=== PATIENT | male | born 1980 | race Caucasian/White ===

== ENCOUNTER 2020-03-23 12:18 | Emergency (ER) | payer OTHER, SELFPAY ==
--- NOTE | ~2020-03-23 | XR_ITS ---
EXAMINATION: XR chest 1V portable INDICATION: Shortness of breath, COVID 19 positive TECHNIQUE: Portable AP chest at 1312 hours COMPARISON: 10/08/2015 FINDINGS: There are patchy airspace opacities of the right lung base. No pleural effusion or pneumoth orax is identified. The cardiomediastinal silhouette is normal. IMPRESSION: 1. Patchy airspace opacities of the right lung base, likely pneumonia. Reviewed, dictated and finalized at location A.
[2020-03-23 12:32] VITALS: BP 122/79; PULSE 79; RESP 18; TEMP 36.6; O2SAT 99
--- NOTE | 2020-03-23 12:35 | ECG_ITS ---
Measurements Intervals [place] Rate: 76 P: 32 SC: 162 QRS: 59 QRSD: 85 T: 30 QT: 366 QTc: 412 Interpretive Statements SINUS RHYTHM POSSIBLE LEFT ATRIAL ENLARGEMENT DELAYED PRECORDIAL R/S TRANSITION BORDERLINE ECG Electronically Signed On 03-23-2020 12:55:01 CDT by John Woods D.O.
--- NOTE | 2020-03-23 12:43 | ED.SOB ---
HPI - SOB/Dyspnea General Chief Complaint: Shortness of Breath/Dyspnea Stated Complaint: chest pressure/positive covid Time Seen by Provider: 03/23/20 12:42 History of Present Illness HPI Narrative: He recently tested positive for COVID-19. Initial symptoms were loss of taste and smell. This started 9 days ago. He has been doing well until this morning when he suddenly developed shortness of breath and mild chest pressure. He used an old albuterol inhaler which helped. This has mostly resolved. Related Data Home Medications Medication Instructions Recorded Confirmed atorvastatin 10 mg tablet 10 mg PO DAILY 08/24/19 08/24/19 podofilox 0.5 % topical solution 1 applic TOPICAL BID 08/24/19 08/24/19 Allergies Allergy/AdvReac Type Severity Reaction Status Date / Time No Known Allergies Allergy Verified 08/24/19 15:22 Review of Systems Review of Systems: All systems reviewed & are unremarkable except as noted in HPI and below Constitutional: Constitutional: Denies chills, Denies fever(s) and Denies weakness ENT: Denies sore throat Cardiovascular: Cardiovascular: Reports chest pain Respiratory: Respiratory: Reports cough, Reports dyspnea and Denies wheezing Gastrointestinal: Gastrointestinal: Denies nausea and Denies vomiting Musculoskeletal: Musculoskeletal: Denies back pain Neurologic: Denies dizziness and Denies weakness Psychiatric: Psychiatric: Reports anxiety PMFSH Past Medical History Medical History Dyslipidemia Elbow fracture Forearm fracture Fracture of triquetrum 01/2004 History of genital warts 06/08/2018 Family History Family History Other Diabetes mellitus Family history of coronary artery disease Hypertension Social History Social History Smoking status: Never smoker Second hand tobacco smoke exposure: No Alcohol intake: current Gender identity (if verbalized by the patient): Male Exam Const: General: healthy appearing, no acute distress and alert Orientation/consciousness: patient oriented x3 HENMT: Head: normal to inspection Chest: Chest palpation & inspection: normal inspection of the chest and no tenderness Resp: Effort & Inspection: normal respiratory effort Auscultation: clear to auscultation bilaterally Cardio: Rate: regular rate Rhythm: regular rhythm GI: GI Palp: Yes Soft to palpation and No Tenderness to palpation present (GI) Skin: General skin exam: normal color Rashes: no rashes Neuro: General: patient oriented x3, moves all extremities and no focal motor deficits Speech: normal speech Extrem: General: normal to inspection and no edema Course Vital Signs Vital signs: Vital Signs Temperature 36.6 C 03/23/20 12:32 Pulse Rate 79 03/23/20 12:32 Respiratory Rate 18 03/23/20 12:32 Blood Pressure 122/79 03/23/20 12:32 Pulse Oximetry 99 03/23/20 12:32 Temperature 36.6 C 03/23/20 12:32 Pulse Rate 79 03/23/20 12:32 Respiratory Rate 18 03/23/20 12:32 Blood Pressure 122/79 03/23/20 12:32 Pulse Oximetry 99 03/23/20 12:32 MDM - SOB/Dyspnea MDM Narrative Medical decision making narrative: oxygen saturation 99-100%. Minimal infiltrate. Likely all from COVID. Will start azithromycin incase there is secondary bacterial infection. No indication for admission at this time. Medical Records Attestation: I reviewed the patient's medical records. Imaging Data Radiologist's impression: ITS Impressions Chest X-Ray 03/23/20 13:15 IMPRESSION: 1. Patchy airspace opacities of the right lung base, likely pneumonia. Discharge Plan Discharge Clinical Impression: Pneumonia due to 2019-nCoV Patient Disposition: Home, Self-Care Condition: Stable Instructions: Antibiotic Form, COVID-19 (Coronavirus Disease 2019) (ED)
== END 2020-03-23 13:44 | disposition home or self-care (01) ==
PROVIDERS: Emergency Provider Emergency Medicine; PCP Family Medicine
DX: U07.1 COVID-19 (principal); J12.89 Other viral pneumonia; E78.5 Hyperlipidemia, unspecified; R94.31 Abnormal electrocardiogram [ECG] [EKG]
CPT/HCPCS: 71045; 93005; 99283

== ENCOUNTER → 2020-11-14 15:59 | Outpatient (CLI) | payer OTHER, SELFPAY ==
--- NOTE | ~2020-11-14 | XR_ITS ---
XR sacroiliac joints min 3V DATE: 11/14/2020 17:49 INDICATION: Sacroiliac joint pain TECHNIQUE: Multiple views COMPARISON: None FINDINGS: Normal alignment at the sacroiliac joints. No fracture or dislocation, erosion or ankylosis . The pubic symphysis is intact. Hip joint spaces appear symmetric and relatively preserved. IMPRESSION: Negative Reviewed, dictated and finalized at Location A. Reviewed, dictated and finalized at location A. IMPRESSION: Negative
--- NOTE | ~2020-11-14 | MR_ITS ---
EXAMINATION: MR lumbar spine wo con EXAM DATE: 11/14/2020 17:46 INDICATION: Lumbar radiculopathy since 2014, progressing over last few years. Radiating down both leg s. TECHNIQUE: Multi-sequential, multiplanar MR images of the lumbar spine were obtained without contrast . Sagittal T1, T2, T2 fat saturation images. Axial T2 weighted images. Correlation is made to lumba r x-ray 02/05/2015. FINDINGS: There is a transitional L5 segment with rudimentary L5-S1 disc. There is mild to moderate d isc disease L4-5 and mild at L3-4. The conus medullaris terminates at the L1 level and has normal sig nal intensity and morphology. The vertebral bodies are aligned in the AP dimension. There are no jimena picious marrow signal abnormalities. Paraspinal soft tissue is unremarkable. Level by level evaluation: T12-L1: Disc does not extend beyond the endplate margin. Facet arthropathy: Mild. Neural foraminal stenosis: No stenosis. Central canal stenosis: No stenosis. L1-L2: Disc does not extend beyond the endplate margin. Facet arthropathy: Mild. Neural foraminal stenosis: No stenosis. Central canal stenosis: No stenosis. L2-L3: There is a minimal diffuse disc bulge. Facet arthropathy: Mild. Neural foraminal stenosis: No stenosis. Central canal stenosis: No stenosis. L3-L4: There is a mild diffuse disc bulge. Facet arthropathy: Mild. Neural foraminal stenosis: No stenosis. Central canal stenosis: No stenosis. L4-L5: There is a mild to moderate diffuse disc bulge asymmetric to the right Facet arthropathy: Mild. Neural foraminal stenosis: Mild to moderate right, mild left. Central canal stenosis: Mild. L5-S1: Rudimentary disc. Facet arthropathy: Partially fused. Neural foraminal stenosis: No stenosis. Central canal stenosis: No stenosis. IMPRESSION: 1. Transitional sacralized L5 segment. 2. Mild to moderate lower lumbar spondylosis. Reviewed, dictated and finalized at location A.
== END ==
PROVIDERS: Visit Provider Nurse Practitioner Family
DX: M54.16 Radiculopathy, lumbar region (principal); M53.3 Sacrococcygeal disorders, not elsewhere classified; Q76.49 Other congenital malformations of spine, not associated with scoliosis; M47.816 Spondylosis without myelopathy or radiculopathy, lumbar region
CPT/HCPCS: 72148; 72202

== ENCOUNTER 2023-11-27 08:42 | Outpatient (CLI) | payer BC, SELFPAY ==
[2023-11-27 13:56] LABS: Basophils Percent Auto 0.6 % (0.2-1.2); Eosinophils Absolute Auto 0.1 K/mm3 (0-0.3); Eosinophils Percent Auto 1.1 % (0-4.4); Hematocrit 44.9 % (42.0-52.0); Hemoglobin 14.5 g/dL (14.0-18.0); Immature Granulocyte Absolute 0.01 K/mm3 (0.00-0.031); Immature Granulocyte Percent A 0.2 % (0-0.5); Lymphocytes Absolute Auto 1.97 K/mm3 (0.9-3.2); Lymphocytes Percent Auto 42.6 % (18.3-44.2); Mean Corpuscular HGB Conc 32.3 g/dl (32-36); Mean Corpuscular Hemoglobin 29.4 pg (26-34); Mean Corpuscular Volume 90.9 fl (80-100); Mean Platelet Volume 9.3 fl (7.4-10.4); Monocytes Absolute Auto 0.4 K/mm3 (0.1-0.6); Monocytes Percent Auto 9.1 % (2.6-8.5); Neutrophils Absolute Auto 2.1 K/mm3 (1.3-6.7); Neutrophils Percent Auto 46.4 % (45.5-73.1); Platelet Count Result 319 k/mm3 (150-375); Red Blood Count 4.94 M/mm3 (4.6-6.20); White Blood Count 4.6 K/mm3 (4.5-10.0)
[2023-11-27 14:06] LABS: Alanine Aminotransferase 45 U/L (6-50); Albumin Level 4.8 g/dL (3.5-5.1); Alkaline Phosphatase 60 U/L (38-126); Anion Gap 7 mmol/L (4-12); Aspartate Amino Transferase 67 U/L (17-59); Bilirubin,Total 0.7 mg/dL (0.2-1.3); Blood Urea Nitrogen 19 mg/dL (9-20); Calcium 10.2 mg/dL (8.4-10.2); Carbon Dioxide 25 mmol/L (22-30); Chloride 107 mmol/L (98-107); Cholesterol 235 mg/dL (0-200); Estimated Glomerular Filt Rate > 60; Glucose 101 mg/dL (65-110); HDL Direct 43 mg/dL; Sodium 139 mmol/L (137-145); Triglycerides 154 mg/dL (<150)
[2023-11-27 14:18] LABS: LDL Cholesterol Direct 144 mg/dL
[2023-11-27 14:38] LABS: Prostate Specific Antigen 1.3 ng/mL (< OR = 4.0); Thyroid Stimulating Hormone 0.197 uIU/mL (0.465-4.680)
[2023-11-27 16:01] LABS: Hemoglobin A1C 5.2 % (<5.7)
== END 2023-11-27 08:43 | disposition home or self-care (01) ==
LOC: ANHGOSHLAB 08:43
PROVIDERS: PCP Family Medicine; Visit Provider Nurse Practitioner Family
DX: Z00.00 Encounter for general adult medical examination without abnormal findings (principal); B00.1 Herpesviral vesicular dermatitis; M67.40 Ganglion, unspecified site; R73.03 Prediabetes; Z12.5 Encounter for screening for malignant neoplasm of prostate; E55.9 Vitamin D deficiency, unspecified; E78.5 Hyperlipidemia, unspecified; Z13.29 Encounter for screening for other suspected endocrine disorder
CPT/HCPCS: 36415; 80053; 80061; 82306; 83036; 84153; 84443; 85025; G0103

== ENCOUNTER 2023-12-10 07:23 | Outpatient (CLI) | payer BC, SELFPAY ==
--- NOTE | ~2023-12-10 | MR_ITS ---
MRI of the lumbar spine Clinical History: Back pain Technique: Axial T2-weighted images, and sagittal T1-weighted, T2-weighted, and T2 fat-sat images wer e acquired. COMPARISON: 11/14/2020 Findings: There is no acute fracture or subluxation of the lumbar spine. Osseous alignment is unchang ed from prior exam. No suspicious bone marrow signal abnormality seen. There are mild reactive marrow signal changes about the L4-L5 disc space due to underlying degenerative disc disease. At L1-L2, there is no disc bulge or herniation. There is moderate facet arthropathy. No central canal stenosis or neural foraminal narrowing. At L2-L3, there is no disc bulge or herniation. There is moderate facet arthropathy. No central canal stenosis or neural foraminal narrowing. L3-L4, there is minimal disc bulge with moderate to advanced facet arthropathy. No central canal sten osis or neural foraminal narrowing. At L4-L5, there is mild disc bulge and moderate facet arthropathy. No central canal stenosis or neura l foraminal narrowing. At L5-S1, there is moderate degenerative disc narrowing. There is mild disc bulge and mild facet arth ropathy. No central canal stenosis. There is minimal right neural foraminal narrowing. Left neural fo ramen preserved. Paravertebral soft tissues are unremarkable. Impression: Minimal degenerative spondylosis, as above. Reviewed, dictated and finalized at [facility]. Impression: Minimal degenerative spondylosis, as above.
== END 2023-12-10 07:24 ==
PROVIDERS: PCP Family Medicine; Visit Provider Chiropractor Rehabilitation
DX: M47.896 Other spondylosis, lumbar region (principal); M47.897 Other spondylosis, lumbosacral region
CPT/HCPCS: 72148

== ENCOUNTER 2024-01-01 08:03 | Outpatient (CLI) | payer BC, SELFPAY ==
[2024-01-01 15:59] LABS: Thyroid Stimulating Hormone 0.521 uIU/mL (0.465-4.680)
[2024-01-01 16:57] LABS: Free T4 Free Thyroxine 1.05 ng/mL (0.78-2.19)
== END 2024-01-01 08:04 | disposition home or self-care (01) ==
LOC: ANHGOSHLAB 08:05
PROVIDERS: PCP Family Medicine; Visit Provider Family Medicine
DX: R79.89 Other specified abnormal findings of blood chemistry (principal); Z79.899 Other long term (current) drug therapy
CPT/HCPCS: 36415; 84439; 84443

== ENCOUNTER 2024-08-14 08:03 | Emergency (ER) | payer BC, SELFPAY ==
--- NOTE | ~2024-08-14 | XR_ITS ---
XR finger 4th LT min 2V DATE: 08/14/2024 08:36 INDICATION: Fall, fourth digit deformity TECHNIQUE: 3 views COMPARISON: None FINDINGS: There is posterior medial dislocation at the proximal interphalangeal joint of the fourth d igit. No fracture is detected. IMPRESSION: Posteromedial dislocation at the proximal interphalangeal joint of the fourth digit; no d efinite fracture noted Reviewed, dictated and finalized at location A. YARD HELPER IMPRESSION: Posteromedial dislocation at the proximal interphalangeal joint of the fourth digit; no definite fracture noted
--- NOTE | ~2024-08-14 | XR_ITS ---
XR finger 4th LT min 2V DATE: 08/14/2024 09:42 INDICATION: Proximal interphalangeal joint dislocation TECHNIQUE: 3 views COMPARISON: 08/14/24 prereduction left fourth digit FINDINGS: There is reduction of the posteromedial dislocation at the proximal interphalangeal joint. No fracture is noted. IMPRESSION: Reduction of the proximal interphalangeal joint dislocation; no fracture detected Reviewed, dictated and finalized at location A. AL LABORATORY TECHNICIAN IMPRESSION: Reduction of the proximal interphalangeal joint dislocation; no fra cture detected
[2024-08-14 08:05] VITALS: BP 122/73; PULSE 66; RESP 18; TEMP 36.2; O2SAT 98
--- NOTE | 2024-08-14 09:32 | ED_ITS ---
HPI - Extremity Injury (Upper) General Chief Complaint: Extremity Injury, Upper Stated Complaint: left finger injury Time Seen by Provider: 08/14/24 09:17 History of Present Illness HPI narrative: Patient is a 44-year-old male who presents ER with injury to left 4th digit. At deformity at the PIP. Unable range the finger. Sensation intact. Fell down stairs causing the injury. No additional complaints or injuries. No LOC. Related Data Allergies Allergy/AdvReac Type Severity Reaction Status Date / Time No Known Allergies Allergy Verified 08/14/24 09:18 Review of Systems Constitutional: Constitutional: Reports no additional constitutional complaints Musculoskeletal: Musculoskeletal: Reports arthralgias and Reports joint swelling Neurologic: Reports system reviewed and no additional complaints, except as documented PMFSH Past Medical History Medical History (Updated 08/14/24 @ 09:35 by Galindo Chapa MD) ADD (attention deficit disorder) DDD (degenerative disc disease) Fever blister Ganglion cyst URI (upper respiratory infection) COVID-19 03/2020 Pneumonia due to 2019-nCoV Dyslipidemia Forearm fracture Elbow fracture Fracture of triquetrum 01/2004 History of genital warts 06/08/2018 Surgical History Surgical History Vasectomy status Family History Family History Other Diabetes mellitus Family history of coronary artery disease Hypertension Social History Social History (Updated 11/27/23 @ 07:29 by Chelsea Davis MA) Smoking status: Never smoker Second hand tobacco smoke exposure: No Alcohol intake: current Alcohol use details: weekends Substance use: never Substance use type: does not use Do You Feel Safe in your Home?: Yes Lack of Transportation: No Lack of Food: Never True Current Housing: I Have Housing Concerned About Future Housing: No Difficulty Paying Gas/Electric Bills: No Difficulty Paying for Meds: No Currently Unemployed: No Education: Associate Degree Difficulty w/ Childcare or Family Care: No Living arrangements: with family Additional living arrangements comments: Mom Occupation/Education: occupation Gender identity (if verbalized by the patient): Male Sexual Orientation (if Verbalized by the Patient): Straight or Heterosexual Agree to blood products: Yes Exam Narrative: GENERAL: Well-appearing, well-nourished, and in no acute distress. HEAD: Normocephalic, atraumatic. HEART: Regular rate and rhythm. Normal peripheral pulses. EXTREMITIES: Left hand with deformity of the 4th digit PIP. Brisk cap refill. SKIN: Warm, dry, no rash. NEURO: No focal deficits. Alert and oriented x3. PSYCH: Normal mood and affect. Course Course Emergency Course: Patient tolerated reduction without issue. X-ray did confirm placement and lack of fracture. Alumafoam splint for comfort. Discharge. Vital Signs Vital signs: Vital Signs Temperature 97.2 F L 08/14/24 08:05 Pulse Rate 66 08/14/24 08:05 Respiratory Rate 18 08/14/24 08:05 Blood Pressure 122/73 08/14/24 08:05 Pulse Oximetry 98 08/14/24 08:05 Oxygen Delivery Room Air 08/14/24 08:05 Temperature 97.2 F L 08/14/24 08:05 Pulse Rate 66 08/14/24 08:05 Respiratory Rate 18 08/14/24 08:05 Blood Pressure 122/73 08/14/24 08:05 Pulse Oximetry 98 08/14/24 08:05 Oxygen Delivery Room Air 08/14/24 08:05 Procedures Orthopedic Joint Reduction Joint #1: Orthopedic Joint Reduction Date: 08/14/24 Orthopedic Joint Reduction Time: 09:28 Time Out Performed: No Side: left Joint Reduction Location: finger Analgesia: none Pre-Procedure Neuro Vascular Exam: normal Technique used: traction/counter-traction Post-reduction neuro exam: intact Post-reduction vascular: intact Post Reduction X-Ray Obtained: Yes Post Reduction X-Ray Results: reduced Splint Applied: Yes Patient Tolerated Procedure: well MDM - Extremity Injury (Upper) Imaging Data Radiologist's impression: ITS Impressions Finger X-Ray 08/14/24 08:54 IMPRESSION: Posteromedial dislocation at the proximal interphalangeal joint of the fourth digit; no definite fracture noted Finger X-Ray 08/14/24 09:45 IMPRESSION: Reduction of the proximal interphalangeal joint dislocation; no fracture detected Discharge Plan Discharge Clinical Impression: Dislocated finger Patient Disposition: Home, Self-Care Condition: Stable Instructions: Finger Dislocation (ED) Additional Instructions: Wear your splint for the next week to help stabilize the joint. Follow-up with your primary care doctor. Return to the ER if you suffer a new injury. Patient Language: Luxembourgish Prescriptions: No Action dextroamphetamine-amphetamine 30 mg capsule,extended release 24hr 30 mg PO QAM Qty: 30 0RF atorvastatin 20 mg tablet 20 mg PO DAILY Qty: 90 4RF cyclobenzaprine 5 mg tablet 5 mg PO BID PRN (Reason: muscle spasm) Qty: 60 2RF tramadol 50 mg tablet 50 mg PO Q12H PRN (Reason: pain) Qty: 60 0RF Follow-up/Referrals: Daniela Jones MD [Primary Care Provider] - 1 Week
== END 2024-08-14 10:00 | disposition home or self-care (01) ==
PROVIDERS: Emergency Provider Emergency Medicine; PCP Family Medicine
DX: S63.285A Dislocation of proximal interphalangeal joint of left ring finger, initial encounter (principal); E78.5 Hyperlipidemia, unspecified; F98.8 Other specified behavioral and emotional disorders with onset usually occurring in childhood and adolescence; Z86.16 Personal history of COVID-19; Z87.01 Personal history of pneumonia (recurrent); Z79.899 Other long term (current) drug therapy; W10.9XXA Fall (on) (from) unspecified stairs and steps, initial encounter
CPT/HCPCS: 26770; 73140; 99285

== ENCOUNTER 2025-02-02 08:39 | Outpatient (CLI) | payer BC, SELFPAY ==
--- OUTSIDE RECORDS SUMMARY | 2025-02-02 08:44 | XMS_ITS | Clinical Summary ---
Author Organization [facility] Address [facility] [place] [address] Care Team Providers Care Structural Analysis Engineer Name Role Phone Unavailable Primary Care Provider Unavailabl e Social History Tobacco Use Types Packs/Day Years Used Date Smoking Tobacco: Never Assessed Sex and Gender Information Value Date Recorded Sex Assigned at Not on file Legal Sex Male 4:36 PM CDT Gender Identity Not on file Sexual Orientation Not on file Plan of Treatment Health Maintenance Due Date Last Done Comments Colorectal Cancer Screening Colonoscopy (10 Years) 1979 Annual Physical 1982 Hepatitis C 1997 DTaP, Tdap and Td Vaccines ( 1 - Tdap) 1998 Hepatitis B Vaccines (1 of 3 - 19+ 3-dose series) 1998 COVID-19 Vaccine (2023-2 5 season) 2024 HPV Vaccines Aged Out No longer eligi ble based on patient's age to complete this topic Meningococcal B Vaccine Aged Out No l onger eligible based on patient's age to complete this topic Meningococcal Vaccine Aged Out No christiane cortez eligible based on patient's age to complete this topic Pneumococcal Vaccine: Pediat rics (0 to 5 Years) and At-Risk Patients (6 to 49 Years) Aged Out No longer eligible b ased on patient's age to complete this topic RSV Immunizations Under 20 Months Aged Out No longer eligible based on patient's age to complete this topic
--- OUTSIDE RECORDS SUMMARY | 2025-02-02 08:44 | XMS_ITS | Continuity of Care Document ---
Author Organization [facility] Address [address] [place] [address] [address] [place] [address] Phone Care Team Providers Care Mine Wedge Sawyer Name Role Phone Amado Fleming Unavailable Unavailable Advance Directives Directive Yes / No Effective Date File Name No Information Encounters Encounter Description Practice Location Reason(s) For Visit Diagnoses Date Provider Providers Copied on Encounter [facility], [address], [place], [place], [id number], [place] tel:[phone] [facility] No Information Sep-2 0-200 6 [address]. [address] , [address], [place], [address], [place]. tel:[phone] Referring Provider: Delia Yeung , [address] [place] [address], [address]. tel:[phone] Family History Family Member Type Diagnosis Age At Onset No Information Payers Payer name Insurance type Covered constitution party ID Authoriza tion(s) No Information Social [...]
[2025-02-02 12:47] LABS: Hematocrit 39.4 % (42.0-52.0); Hemoglobin 12.6 g/dL (14.0-18.0); Immature Granulocyte Percent A 0.2 % (0-0.5); Lymphocytes Absolute Auto 2.15 K/mm3 (0.9-3.2); Mean Corpuscular HGB Conc 32.0 g/dl (32-36); Mean Corpuscular Hemoglobin 29.3 pg (26-34); Mean Corpuscular Volume 91.6 fl (80-100); Nucleated Red Blood Cells Absolute Auto 0.000 K/mm3 (0.0-0.012); Nucleated Red Blood Cells Perc 0.0 % (0.0-0.2); Platelet Count Result 282 k/mm3 (150-375); Red Blood Count 4.30 M/mm3 (4.6-6.20); White Blood Count 5.2 K/mm3 (4.5-10.0)
[2025-02-02 13:05] LABS: Alanine Aminotransferase 55 U/L (6-50); Albumin Level 4.3 g/dL (3.5-5.1); Alkaline Phosphatase 48 U/L (38-126); Anion Gap 7 mmol/L (4-12); Aspartate Amino Transferase 56 U/L (17-59); Bilirubin,Total 0.5 mg/dL (0.2-1.3); Blood Urea Nitrogen 21 mg/dL (9-20); Calcium 9.3 mg/dL (8.4-10.2); Carbon Dioxide 26 mmol/L (22-30); Chloride 105 mmol/L (98-107); Cholesterol 201 mg/dL (0-200); Estimated Glomerular Filt Rate > 60; Glucose 87 mg/dL (65-110); HDL Direct 47 mg/dL; Potassium 4.1 mmol/L (3.4-5.0); Sodium 138 mmol/L (137-145); Total Protein 7.2 g/dL (6.3-8.2); Triglycerides 91 mg/dL (<150)
[2025-02-02 13:37] LABS: Prostate Specific Antigen 1.0 ng/mL (< OR = 4.0)
[2025-02-02 13:48] LABS: Thyroid Stimulating Hormone Reflex 0.548 uIU/mL (0.465-4.68)
[2025-02-02 13:57] LABS: Hemoglobin A1C 5.4 % (<5.7)
[2025-02-02 13:58] LABS: Vitamin B12 751.0 pg/mL (239-931)
== END 2025-02-02 08:40 | disposition home or self-care (01) ==
LOC: ANHGOSHLAB 08:41
PROVIDERS: PCP Family Medicine; Visit Provider Family Medicine
DX: Z00.00 Encounter for general adult medical examination without abnormal findings (principal); E78.5 Hyperlipidemia, unspecified; I10 Essential (primary) hypertension; R73.9 Hyperglycemia, unspecified; E55.9 Vitamin D deficiency, unspecified; E53.8 Deficiency of other specified B group vitamins; R41.840 Attention and concentration deficit; Z12.5 Encounter for screening for malignant neoplasm of prostate
CPT/HCPCS: 36415; 80053; 80061; 82306; 82607; 83036; 84153; 84443; 85025; G0103

== ENCOUNTER 2025-05-22 10:09 | Outpatient (CLI) | payer BC, SELFPAY ==
[2025-05-22 12:58] LABS: Hematocrit 40.7 % (42.0-52.0); Hemoglobin 13.5 g/dL (14.0-18.0); Immature Granulocyte Percent A 0.2 % (0-0.5); Lymphocytes Absolute Auto 2.44 K/mm3 (0.9-3.2); Mean Corpuscular HGB Conc 33.2 g/dl (32-36); Mean Corpuscular Hemoglobin 29.3 pg (26-34); Mean Corpuscular Volume 88.5 fl (80-100); Nucleated Red Blood Cells Absolute Auto 0.000 K/mm3 (0.0-0.012); Nucleated Red Blood Cells Perc 0.0 % (0.0-0.2); Platelet Count Result 313 k/mm3 (150-375); Red Blood Count 4.60 M/mm3 (4.6-6.20); White Blood Count 5.6 K/mm3 (4.5-10.0)
[2025-05-22 13:11] LABS: Alanine Aminotransferase 43 U/L (6-50); Albumin Level 4.4 g/dL (3.5-5.1); Alkaline Phosphatase 59 U/L (38-126); Anion Gap 8 mmol/L (4-12); Aspartate Amino Transferase 52 U/L (17-59); Bilirubin,Total 0.4 mg/dL (0.2-1.3); Blood Urea Nitrogen 20 mg/dL (9-20); Calcium 9.1 mg/dL (8.4-10.2); Carbon Dioxide 25 mmol/L (22-30); Chloride 105 mmol/L (98-107); Cholesterol 242 mg/dL (0-200); Estimated Glomerular Filt Rate > 60; Glucose 91 mg/dL (65-110); HDL Direct 49 mg/dL; Potassium 4.3 mmol/L (3.4-5.0); Sodium 138 mmol/L (137-145); Total Protein 7.7 g/dL (6.3-8.2); Triglycerides 119 mg/dL (<150)
[2025-05-22 13:36] LABS: Thyroid Stimulating Hormone Reflex 0.945 uIU/mL (0.465-4.68)
[2025-05-22 14:06] LABS: Hemoglobin A1C 5.1 % (<5.7)
== END 2025-05-22 10:10 | disposition home or self-care (01) ==
LOC: ANHGOSHLAB 10:13
PROVIDERS: PCP Family Medicine; Visit Provider Nurse Practitioner Family
DX: E78.5 Hyperlipidemia, unspecified (principal); R73.9 Hyperglycemia, unspecified; E55.9 Vitamin D deficiency, unspecified
CPT/HCPCS: 36415; 80053; 80061; 82306; 83036; 84443; 85025

== ENCOUNTER 2025-06-02 00:15 | Day surgery (SDC) | payer BC, SELFPAY ==
--- OUTSIDE RECORDS SUMMARY | 2006-04-22 09:00 | XMS_ITS | Continuity of Care Document ---
Author Organization [facility] Address [address] [place] [address] [address] [place] [address] Phone Care Team Providers Care All Terrain Vehicle Racer Name Role Phone Amado Fleming Unavailable Unavailable Advance Directives Directive Yes / No Effective Date File Name No Information Encounters Encounter Description Practice Location Reason(s) For Visit Diagnoses Date Provider Providers Copied on Encounter [facility], [address], [place], [place], [id number], [place] tel:[phone] [facility] No Information Sep-2 0-200 6 [address] Ed[address]. [address] , [address], [place], [address], [place]. tel:[phone] Referring Provider: Delia Yeung , [address] [place] [address], [address]. tel:[phone] Family History Family Member Type Diagnosis Age At Onset No Information Payers Payer name Insurance type Covered green party ID Authoriza tion(s) No Information Social History Type Description Quantity Date Captured Comments Sex Male Smoking Status No Information Chief Complaint And Reason For Visit No Information Reason For Referral Reason For Referral No Information History Of Present Illness Encounter Date Complaint History Of Prese nt Illness No Information Functional Status Date Functional Assessmen t No Information Instructions Date Instruction Additional Infor mation No Information Assessments Type Assessment Date No Information Patient Care Teams Name Effective Dates (start - stop) Status Members No Information
[2025-05-23 13:59] VITALS: BMI 27.1
[2025-06-02 07:47] VITALS: BP 121/78; PULSE 57; RESP 16; TEMP 36.1; O2SAT 100
--- NOTE | 2025-06-02 07:51 | WPDANESEPPF ---
Anes - Initial Pre Proc Eval Procedure: Operation Date: 06/02/25 09:00 Proposed Procedures p Screening Colonoscopy - Leonardo Viera MD Date/Time: 06/02/25 07:51 Surgeon: Leonardo Viera MD Pre Op Diagnosis: Screening Patient Data Age: 44 Gender: M Height: 1.83 m Weight: 88.7 kg Last Vital Signs Temp 36.1 C L 06/02/25 07:47 Pulse 57 L 06/02/25 07:47 Resp 16 06/02/25 07:47 BP 121/78 06/02/25 07:47 Pulse Ox 100 06/02/25 07:47 O2 Del Method Room Air 06/02/25 07:47 Allergies Allergy/AdvReac Type Severity Reaction Status Date / Time No Known Allergies Allergy Verified 06/02/25 07:46 Home Medications ?Medication ?Instructions ?Recorded ?Confirmed ?Type cyclobenzaprine 5 mg tablet 5 mg PO BID PRN muscle spasm #60 10/24/24 05/23/25 Rx tabs tramadol 50 mg tablet 50 mg PO Q12H PRN pain #60 tabs 10/24/24 05/23/25 Rx atorvastatin 40 mg tablet (Lipitor) 40 mg PO QHS #90 tabs 02/02/25 06/02/25 Rx cetirizine 10 mg capsule (Zyrtec) 10 mg PO DAILY 02/13/25 06/02/25 History diclofenac sodium 75 mg 75 mg PO BID pain #60 tabs 02/13/25 02/13/25 Rx tablet,delayed release efinaconazole 10 % topical 1 applic topical DAILY 48 weeks #8 02/13/25 06/02/25 Rx solution with applicator (Jublia) mL glucosamine 750 ew-ftscsncyjlj-sef 1 tablet PO DAILY 02/13/25 06/02/25 History no1 644 mg-C 30 mg-kathie 1 mg tablet (Osteo Bi-Flex Triple Strength) lactobacillus combination no.9 4 4,000 mmu cells PO DAILY 02/13/25 06/02/25 History billion cell capsule (Adult 50 Plus Probiotic) txyonbzw-bongpzes-mzleb acid 400 1 tablet PO DAILY 02/13/25 06/02/25 History mcg-vit K 20 mcg-lycop 300 mcg tablet (One-A-Day Men's Multivitamin) vitamin B complex 1 cap PO DAILY 02/13/25 02/13/25 History dextroamphetamine-amphetamine 20 20 mg PO DAILY #30 tabs 05/01/25 06/02/25 Rx mg tablet (Adderall) lisdexamfetamine 60 mg capsule 60 mg PO DAILY #30 caps 05/01/25 06/02/25 Rx (Vyvanse) Patient hx anesthesia problems: none Family hx anesthesia problems: none Results Review: All pre-operative results and documents have been reviewed as part of the pre-operative evaluation. [facility] Past Medical History Medical History ADD (attention deficit disorder) DDD (degenerative disc disease) Fever blister Ganglion cyst URI (upper respiratory infection) COVID-19 03/2020 Pneumonia due to 2019-nCoV Dyslipidemia Forearm fracture Elbow fracture Fracture of triquetrum 01/2004 History of genital warts 06/08/2018 Surgical History Surgical History Vasectomy status Family History Family History Other Diabetes mellitus Family history of coronary artery disease Hypertension Social History Social History Smoking status: Never smoker Second hand tobacco smoke exposure: No Alcohol intake: current Alcohol use details: weekends Substance use: never Substance use type: does not use Do You Feel Safe in your Home?: Yes Lack of Transportation: No Lack of Food: Never True Current Housing: I Have Housing Concerned About Future Housing: No Difficulty Paying Gas/Electric Bills: No Difficulty Paying for Meds: No Currently Unemployed: No Education: Associate Degree Difficulty w/ Childcare or Family Care: No Living arrangements: with family Additional living arrangements comments: Mom Occupation/Education: occupation Gender identity (if verbalized by the patient): Male Sexual Orientation (if Verbalized by the Patient): Straight or Heterosexual Agree to blood products: Yes Anes - Eval Final PreProcedure Day of Procedure 06/02/25 07:51 Patient weight: overweight Heart: regular rate and rhythm Lungs: clear to auscultation Airway: Mallampati scale class II Neurological: alert and oriented Last oral intake: >/= 8 hours ASA classification: II Emergent: no Anesthetic plan: proceed Anesthesia type and monitoring: general GIVS and standard monitoring Results Review: All pre-operative results and documents have been reviewed as part of the pre-operative evaluation. Informed Consent: The patient's anesthetic plan and its attendant risks and benefits were discussed with the patient/family/POA. Questions were solicited and answers provided to the satisfaction of the patient/family/POA.
[2025-06-02] MEDS: LACTATED RINGERS 1,000 ML 150 ML IV CONT (08:03)
--- NOTE | 2025-06-02 08:45 | PM.HPGS ---
History of Present Illness History of Present Illness Consent: Risks, benefits, and alternatives have been discussed and questions answered. Patient agrees to proceed with procedure. Chief complaint: Screening Narrative: Buck Bojorquez is a 44 year old male here for first screening colonoscopy Review of Systems Review of Systems: All systems reviewed & are unremarkable except as noted in HPI and below PMFSH Past Medical History Medical History ADD (attention deficit disorder) DDD (degenerative disc disease) Fever blister Ganglion cyst URI (upper respiratory infection) COVID-19 03/2020 Pneumonia due to 2019-nCoV Dyslipidemia Forearm fracture Elbow fracture Fracture of triquetrum 01/2004 History of genital warts 06/08/2018 Surgical History Surgical History Vasectomy status Family History Family History Other Diabetes mellitus Family history of coronary artery disease Hypertension Social History Social History Smoking status: Never smoker Second hand tobacco smoke exposure: No Alcohol intake: current Alcohol use details: weekends Substance use: never Substance use type: does not use Do You Feel Safe in your Home?: Yes Lack of Transportation: No Lack of Food: Never True Current Housing: I Have Housing Concerned About Future Housing: No Difficulty Paying Gas/Electric Bills: No Difficulty Paying for Meds: No Currently Unemployed: No Education: Associate Degree Difficulty w/ Childcare or Family Care: No Living arrangements: with family Additional living arrangements comments: Mom Occupation/Education: occupation Gender identity (if verbalized by the patient): Male Sexual Orientation (if Verbalized by the Patient): Straight or Heterosexual Agree to blood products: Yes Meds Home Medications and Allergies Home Medications ?Medication ?Instructions ?Recorded ?Confirmed ?Type cyclobenzaprine 5 mg tablet 5 mg PO BID PRN muscle spasm #60 10/24/24 05/23/25 Rx tabs tramadol 50 mg tablet 50 mg PO Q12H PRN pain #60 tabs 10/24/24 05/23/25 Rx atorvastatin 40 mg tablet (Lipitor) 40 mg PO QHS #90 tabs 02/02/25 06/02/25 Rx cetirizine 10 mg capsule (Zyrtec) 10 mg PO DAILY 02/13/25 06/02/25 History diclofenac sodium 75 mg 75 mg PO BID pain #60 tabs 02/13/25 02/13/25 Rx tablet,delayed release efinaconazole 10 % topical 1 applic topical DAILY 48 weeks #8 02/13/25 06/02/25 Rx solution with applicator (Jublia) mL glucosamine 750 cu-ccgxhpetdes-gzn 1 tablet PO DAILY 02/13/25 06/02/25 History no1 644 mg-C 30 mg-kathie 1 mg tablet (Osteo Bi-Flex Triple Strength) lactobacillus combination no.9 4 4,000 mmu cells PO DAILY 02/13/25 06/02/25 History billion cell capsule (Adult 50 Plus Probiotic) azdgbykr-nwjgzpul-grmsn acid 400 1 tablet PO DAILY 02/13/25 06/02/25 History mcg-vit K 20 mcg-lycop 300 mcg tablet (One-A-Day Men's Multivitamin) vitamin B complex 1 cap PO DAILY 02/13/25 02/13/25 History dextroamphetamine-amphetamine 20 20 mg PO DAILY #30 tabs 05/01/25 06/02/25 Rx mg tablet (Adderall) lisdexamfetamine 60 mg capsule 60 mg PO DAILY #30 caps 05/01/25 06/02/25 Rx (Vyvanse) Allergies Allergy/AdvReac Type Severity Reaction Status Date / Time No Known Allergies Allergy Verified 06/02/25 07:46 Vital Signs Vital Signs - 24 hr 06/02/25 07:47 Temperature 96.9 F L Pulse Rate 57 L Respiratory Rate 16 Blood Pressure 121/78 Pulse Oximetry 100 Oxygen Delivery Room Air Exam Const: General: comfortable and no acute distress HENMT: Face/Nose/Sinus: Normal nares present Eyes: General: appearance normal, both eyes and all related structures Neck: Neck: no JVD Resp: Auscultation: clear to auscultation bilaterally Cardio: Rate: regular rate Rhythm: regular rhythm GI: Inspection: non-distended GI Palp: Yes Soft to palpation Skin: General skin exam: normal color Extrem: General: normal to inspection Psych: Mental Status: mental status grossly normal Assessment and Plan Assessment and plan (1) Colon cancer screening: Code(s): Z12.11 - Encounter for screening for malignant neoplasm of colon Status: Acute Assessment and Plan: colonoscopy
[2025-06-02 09:01] VITALS: BP 98/64; PULSE 60; RESP 18; O2SAT 98
[2025-06-02 09:11] VITALS: BP 104/72; PULSE 57; RESP 20; O2SAT 100
[2025-06-02 09:21] VITALS: BP 122/91; PULSE 59; RESP 18; O2SAT 100
== END 2025-06-02 09:27 | disposition home or self-care (01) ==
PROVIDERS: PCP Family Medicine; Referring Provider Nurse Practitioner Family; Visit Provider Internal Medicine Gastroenterology
PROC: 0DJD8ZZ Inspection of Lower Intestinal Tract, Via Natural or Artificial Opening Endoscopic (ICD-10-PCS; CPT 45378; principal; 2025-06-02 09:00)
DX: Z12.11 Encounter for screening for malignant neoplasm of colon (principal); K57.30 Diverticulosis of large intestine without perforation or abscess without bleeding; K64.8 Other hemorrhoids
CPT/HCPCS: 45378; J2003; J2704; J7120